=== PATIENT | male | born 1975 | race Caucasian/White ===

== ENCOUNTER 2020-12-26 11:52 | Inpatient (IN) | payer OTHER ==
[2020-12-26 12:10] VITALS: BMI 21.8
[2020-12-26] MEDS ORDERED: IBUPROFEN 400 MG TABLET (FP) PO PRN (13:39)
[2020-12-26] MEDS ORDERED: MAG HYDROX/AL HYDROX/SIMETH 30 ML UNIT-DOSE CUP PO PRN (13:39)
[2020-12-26] MEDS ORDERED: ACETAMINOPHEN 325 MG TABLET (FP) PO PRN ×2 (13:39)
[2020-12-26] MEDS ORDERED: MENTHOL/PHENOL 1 EACH UD MM PRN (13:39)
[2020-12-26] MEDS ORDERED: METHOCARBAMOL 500 MG TABLET PO PRN (13:39)
[2020-12-26] MEDS ORDERED: ONDANSETRON *ODT* 4 MG TABLET SL PRN (13:39)
[2020-12-26] MEDS ORDERED: MAGNESIUM HYDROX 2400MG/30ML ORAL SUSPENSION 30 ML CUP PO PRN (13:39)
[2020-12-26] MEDS ORDERED: MAGNESIUM CITRATE 300 ML BOTTLE PO PRN (13:39)
[2020-12-26] MEDS ORDERED: NICOTINE POLACRILEX 2 MG GUM BUC PRN (13:39)
[2020-12-26] MEDS ORDERED: BISMUTH SUBSALICYLATE 524 MG/30 ML PO PRN (13:39)
[2020-12-26] MEDS: PRENATAL VITAMINS W/ FOLIC ACID TABLET (FP) PO SCH (15:50)
[2020-12-26] MEDS: NICOTINE 21 MG/24 HOURS TOPICAL PATCH TD SCH (15:50)
[2020-12-26] MEDS: hydrOXYzine PAMOATE 25 MG CAPSULE (FP) PO SCH ×3 (15:50→22:10)
[2020-12-26 16:49] LABS: HEMATOCRIT 41.3 % (35.4-49); HEMOGLOBIN 13.9 GM/dL (11.7-16.9); MCH 29.9 pg (25.7-33.7); MCHC 33.5 g/dl (32.0-35.9); MEAN CELL VOLUME 89.4 fl (80-96); MEAN PLT VOLUME 8.5 fl (7.5-11.1); PLATELET COUNT 239 K/MM3 (134-434); RBC 4.63 M/mm3 (4.00-5.60); WHITE BLOOD COUNT 9.3 K/mm3 (4.0-10.0)
[2020-12-26 16:56] LABS: ALBUMIN 3.3 g/dl (3.4-5.0); BLOOD UREA NITROGEN 11.2 mg/dL (7-18)
[2020-12-26 16:59] LABS: CREATININE 0.9 mg/dL (0.55-1.3)
[2020-12-26 17:01] LABS: BILIRUBIN,TOTAL 0.6 mg/dL (0.2-1); TOT PROT 7.3 g/dl (6.4-8.2)
[2020-12-26 17:55] LABS: HIV INTERPRETATION NEGATIVE (NEGATIVE)
[2020-12-26] MEDS: cloNIDine HCL 0.1 MG TABLET PO PRN ×2 (19:01→23:26)
[2020-12-26] MEDS ORDERED: THIAMINE HCL 100 MG TABLET (FP) PO SCH (22:00)
[2020-12-26] MEDS ORDERED: MELATONIN 5 MG TABLETS PO SCH (22:00)
[2020-12-27] MEDS ORDERED: methaDONE HCL 10 MG TABLET (FOR DETOX USE ONLY) PO ONE (00:10)
[2020-12-27] MEDS: hydrOXYzine PAMOATE 25 MG CAPSULE (FP) PO SCH (06:46)
[2020-12-27] MEDS ORDERED: hydrOXYzine PAMOATE 25 MG CAPSULE (FP) PO PRN (08:26)
[2020-12-27] MEDS: NICOTINE 21 MG/24 HOURS TOPICAL PATCH TD SCH (10:26)
[2020-12-27] MEDS: PRENATAL VITAMINS W/ FOLIC ACID TABLET (FP) PO SCH (10:26)
[2020-12-27 13:10] VITALS: BP 120/75; PULSE 59; TEMP 98.4
[2020-12-27] MEDS ORDERED: BUPRENORPHINE/NALOXONE 2 MG/0.5 MG FILM PACKET SL ONE (13:39)
[2020-12-27] MEDS ORDERED: MASKS NR ONE (13:49)
[2020-12-27] MEDS: cloNIDine HCL 0.1 MG TABLET PO PRN (13:51)
[2020-12-27] MEDS ORDERED: BUPRENORPHINE/NALOXONE 4 MG/1 MG FILM PACKET SL PRN (19:39)
[2020-12-28] MEDS ORDERED: BUPRENORPHINE/NALOXONE 12 MG-3 MG SL FILM PACKET SL ONE (09:00)
[2020-12-28] MEDS ORDERED: BUPRENORPHINE/NALOXONE 4 MG/1 MG FILM PACKET SL PRN (15:00)
[2020-12-29] MEDS ORDERED: BUPRENORPHINE/NALOXONE 12 MG-3 MG SL FILM PACKET SL ONE (09:00)
[2020-12-29] MEDS ORDERED: methaDONE HCL 10 MG TABLET (FOR DETOX USE ONLY) PO ONE (10:00)
[2020-12-30] MEDS ORDERED: BUPRENORPHINE/NALOXONE 12 MG-3 MG SL FILM (DETOX) SL ONE (09:00)
[2020-12-30] MEDS ORDERED: BUPRENORPHINE/NALOXONE 2 MG/0.5 MG FILM (DETOX) SL ONE (21:00)
[2020-12-31] MEDS ORDERED: BUPRENORPHINE/NALOXONE 4 MG/1 MG FILM (DETOX) SL ONE (06:00)
[2020-12-31] MEDS ORDERED: methaDONE HCL 10 MG TABLET (FOR DETOX USE ONLY) PO ONE (10:00)
== END 2020-12-27 14:08 | disposition left against medical advice (07) | DRG 770 ==
LOC: YASAS 11:52 → Y3N 13:13
PROVIDERS: ADMIT Allergy & Immunology; ATTEND Allergy & Immunology
PROC: HZ2ZZZZ Detoxification Services for Substance Abuse Treatment (ICD-10-PCS; principal; 2020-12-26)
DX: F11.23 Opioid dependence with withdrawal (principal); F10.230 Alcohol dependence with withdrawal, uncomplicated; F14.20 Cocaine dependence, uncomplicated; F12.20 Cannabis dependence, uncomplicated; F17.210 Nicotine dependence, cigarettes, uncomplicated; F31.9 Bipolar disorder, unspecified; F19.280 Other psychoactive substance dependence with psychoactive substance-induced anxiety disorder; F19.282 Other psychoactive substance dependence with psychoactive substance-induced sleep disorder; F19.24 Other psychoactive substance dependence with psychoactive substance-induced mood disorder; F90.9 Attention-deficit hyperactivity disorder, unspecified type; Z56.0 Unemployment, unspecified
CPT/HCPCS: 36415; 80053; 85027; 86593; 86780; 87389; 93005; 93010; C9803; J0735; Q0162; U0003; U0005